=== PATIENT | female | born 1970 | race Caucasian/White ===

== ENCOUNTER → 2017-12-17 20:04 | Outpatient (REF) | payer OTHER, SELFPAY | LOC: LAB 20:04 | PROVIDERS: Visit Provider Nurse Practitioner Family ==

== ENCOUNTER → 2018-08-02 16:26 | Outpatient (CLI) | payer BC, SELFPAY ==
--- NOTE | 2018-08-02 16:30 | MM_ITS ---
MM Dig screening mamm BI w/CAD CAD Screening COMPARISON: Digital mammograms with CAD 06/10/2016 and 09/22/2012 INDICATION: There is no personal or family history of breast cancer TECHNIQUE: Standard CC and MLO images were obtained. R2 CAD reviewed. FINDINGS: The breasts are composed primarily of fat with scattered fibroglandular densities throughout each breast. There are few benign-appearing calcifications in each breast. There is a possible developing asymmetric density right breast upper outer quadrant. Recommend patient return for spot compression views in MLO and CC projection and ultrasound may be necessary as well. IMPRESSION: Fibrofatty parenchyma with possible developing asymmetric density right breast BI-RADS Category: 0 Need Additional Imaging Evaluation RECOMMENDED FOLLOW-UP: IMM - IMMEDIATE FOLLOW-UP RECOMMENDED (A letter has been sent to the patient regarding results of the study.)
== END ==
PROVIDERS: Family Provider Family Medicine; PCP Family Medicine; Visit Provider Obstetrics & Gynecology
DX: Z12.31 Encounter for screening mammogram for malignant neoplasm of breast (principal)
CPT/HCPCS: 77067

== ENCOUNTER → 2018-08-13 14:26 | Outpatient (CLI) | payer BC, SELFPAY ==
--- NOTE | 2018-08-13 14:28 | MM_ITS ---
MM Dig mamm DX unilat RT CAD, US breast RT complete INDICATION: Follow-up abnormal screening exam. Asymmetric density right breast ORDERING PHYSICIAN: Jayesh Beck MD PATIENT AGE: 48 years COMPARISON: 08/02/2018, 06/10/2016 TECHNIQUE: Spot compression views of the right breast and right breast ultrasound FINDINGS: There is a vague area of nodularity in the lateral aspect of the right breast at the 10:00 region corresponding to the abnormality noted on the screening study. This does not appear to compress out completely. The margins are slightly secured. Ultrasound was therefore performed. Right breast ultrasound: There is a complex cystic nodule at 10:00 which measures 7 x 4 mm corresponding to the mammographic abnormality. This is wider than it is tall contains internal septations with some enhanced through transmission of sound. No other significant anomalies are evident. IMPRESSION: Mammographic abnormality in the 10:00 region of the right breast corresponds to a complex cyst is probably benign. Suggest 6 month mammographic and sonographic follow-up for confirmation of short-term stability BI-RADS Category: 3 Probably Benign Finding Short Term Follow-up RECOMMENDED FOLLOW-UP: 6M - 6 MONTH FOLLOW-UP (A letter has been sent to the patient regarding results of the study.)
== END ==
PROVIDERS: PCP Obstetrics & Gynecology; Visit Provider Obstetrics & Gynecology
DX: R92.8 Other abnormal and inconclusive findings on diagnostic imaging of breast (principal)
CPT/HCPCS: 76641; 77065

== ENCOUNTER → 2019-07-04 13:11 | Outpatient (CLI) | payer BC, SELFPAY ==
--- NOTE | 2019-07-04 13:16 | US_ITS ---
PROCEDURE: US TRANSVAGINAL CLINICAL INDICATION: PELVIC PAIN COMPARISON: PTV US PELVIS-TRANSVAGINAL ONLY from 01/20/2017 FINDINGS: Uterus measures 8 x 4 x 4.5 cm with a combined endometrial thickness of 5 mm. Nabothian cysts are present measuring up to 1.2 cm. No uterine mass evident. The left ovary has an unremarkable appearance at 2.5 x 1.5 cm. There is a 3 cm right ovarian cyst and a 1.2 cm right ovarian cyst. No cul-de-sac fluid evident IMPRESSION: There are 2 right ovarian cyst measuring 3 and 1.2 cm. Follow-up suggested to confirm resolution otherwise negative Dictated by: Ivan Shen MD 07/04/2019 17:19 Electronically signed by Ivan Shen MD in [place] 07/04/2019 17:19
--- NOTE | 2019-07-04 14:36 | US_ITS ---
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 R2 CAD reviewed. FINDINGS: There is average fibroglandular tissue. Benign-appearing calcifications are present in the lower inner aspect of the right breast. These are not significantly changed and may reflect skin calcifications. Nodular density once again noted in the upper outer aspect of the right breast at the 10 o'clock region which are probably benign. Recommend bilateral 6 month follow-up with ultrasound of both sides.. No new nodules evident. Right breast ultrasound: There is a complex hypoechoic nodule at 10 o'clock at 6 x 3 mm. The size is overall not significantly changed with the echogenicity is slightly increased. The lateral margins are also slightly irregular. This may only represent a complex cyst. Continued follow-up suggested. Left breast: There is a 6 mm nodule in the upper outer aspect of the left breast lobulated in nature present on previous studies and appears slightly larger on the MLO but could be related to the technique.. This may be due to an intramammary lymph node or a cluster of small cysts. There is an asymmetric density in the central aspect of the left breast probably due to fibroglandular tissue. IMPRESSION: Bilateral breast nodules probably benign. Recommend bilateral 6 month mammographic and sonographic follow-up BI-RAD Category: 3 Probably Benign Finding Short Term Follow-up FOLLOW-UP: 6M 6Month Follow-up (A letter has been sent to the patient regarding results of the study.) Dictated by: Ivan Shen MD 07/08/2019 10:26 Electronically signed by Ivan Shen MD in [place] 07/08/2019 10:26
== END ==
PROVIDERS: PCP Family Medicine; Visit Provider Obstetrics & Gynecology
DX: R92.8 Other abnormal and inconclusive findings on diagnostic imaging of breast (principal); R10.2 Pelvic and perineal pain
CPT/HCPCS: 76641; 76830; 77066

== ENCOUNTER → 2019-08-01 10:43 | Outpatient (CLI) | payer BC, SELFPAY ==
--- NOTE | 2019-08-01 10:44 | US_ITS ---
PROCEDURE: US TRANSVAGINAL CLINICAL INDICATION: OVARIAN CYST Follow-up ovarian cyst COMPARISON: US TRANSVAGINAL from 07/04/2019 FINDINGS: UTERUS: The uterus is 9 x 4 x 5 cm with a combined endometrial thickness of 8 mm. Nabothian cysts are present. Ovaries: The left ovary is 3 x 1.7 cm and contains a 1.4 cm cyst. The right ovary is 3.7 x 2.2 cm and contains a 2.3 x 1.6 cm cyst. Previously this cyst measured 3 x 2 cm. There is an additional small cyst adjacent to the larger cyst at 12 mm not significantly changed. No cul-de-sac fluid evident. IMPRESSION: Overall slight decrease in size of the dominant left ovarian cyst with no change in the other smaller left ovarian cyst. Bulky uterus Dictated by: Ivan Shen MD 08/01/2019 15:33 Electronically signed by Ivan Shen MD in [place] 08/01/2019 15:33
== END ==
PROVIDERS: PCP Family Medicine; Visit Provider Obstetrics & Gynecology
DX: N83.202 Unspecified ovarian cyst, left side (principal)
CPT/HCPCS: 76830

== ENCOUNTER → 2020-01-12 08:44 | Outpatient (CLI) | payer OTHER, SELFPAY ==
--- NOTE | 2020-01-12 08:51 | US_ITS ---
PROCEDURE: US BREAST RT COMPLETE CLINICAL INDICATION: US Breast Bilateral- 6 mo f/u COMPARISON: US BREAST RT COMPLETE from 07/04/2019. Mammogram 01/12/2020 FINDINGS: At the 10 o'clock position near the nipple a hypoechoic nodule 4.9 x 3.5 x 2.7 millimeters is noted. This did measure 5.8 by 5.9 x 3.0 millimeters. Complicated cyst is favored. The slight decrease in size would favor benign etiology. There is no other discrete lesion. IMPRESSION: BI-RADS category 3 probably benign finding six-month follow-up exam is recommended. Dictated by: Jordan Bloom 01/12/2020 15:49 Electronically signed by Jordan Bloom in [place] 01/12/2020 15:49
--- NOTE | 2020-01-12 08:51 | US_ITS ---
PROCEDURE: US BREAST LT COMPLETE CLINICAL INDICATION: US Breast Bilateral- 6 mo f/u Assess new nodule seen in left breast mammographically COMPARISON: US BREAST RT COMPLETE from 01/12/2020. Mammogram 01/12/2020 FINDINGS: Multiple images targeted to the mammographic abnormality demonstrate at the 3 o'clock position near the nipple a 5.4 x 2.9 by 5.3 millimeter cystic nodule. There is a relatively thickened posterior wall suggesting complicated cyst. There is good through transmission. There is no mural nodule or other significant solid component. The finding is felt to be probably benign. There is no other discrete lesion. IMPRESSION: BI-RADS category 3 probably benign finding six-month follow-up exam is recommended. Dictated by: Jordan Bloom 01/12/2020 15:53 Electronically signed by Jordan Bloom in [place] 01/12/2020 15:53
--- NOTE | 2020-01-12 08:51 | MM_ITS ---
PROCEDURE: MM DIG MAMM BI DX W/CAD Digital Breast Tomosynthesis Included CLINICAL INDICATION: Dx Bilateral Mamm- 6 mo f/u COMPARISON: [facility] DIG MAMM-SCREEN RACHEL from 06/10/2016 [facility] MM Dig screening mamm BI w/CAD from 08/02/2018 DXRT MM Dig mamm DX unilat RT CAD from 08/13/2018 MM DIG MAMM BI DX W/CAD from 07/04/2019 TECHNIQUE: Standard CC and MLO images and 3D Tomosynthesis was obtained. R2 CAD reviewed. FINDINGS: The breasts are of average density. A well-circumscribed nodule approximately 4.4 millimeters is seen in the left breast at approximately the 3 o'clock position. Ultrasound targeted to this abnormality performed 01/12/2020 demonstrated a probably benign complicated cystic lesion. There are scattered benign appearing calcifications bilaterally. There are no spiculated masses or suspicious clustered microcalcifications to suggest malignancy. Previously described nodular density in the lateral right breast is not clearly present. Asymmetrical density deep in the left breast behind the nipple on the MLO view is not significantly changed. A 3 millimeter well-circumscribed nodular density is seen at the nipple line in the retroareolar left breast on the MLO view may lie medially on the CC view. It is probably benign. Six-month follow-up exam is recommended. IMPRESSION: BI-RAD Category: 3 Probably Benign Finding Short Term Follow-up FOLLOW-UP: 6M 6Month Follow-up (A letter has been sent to the patient regarding results of the study.) Dictated by: Jordan Bloom 01/12/2020 16:09 Electronically signed by Jordan Bloom in [place] 01/12/2020 16:09
== END ==
PROVIDERS: PCP Family Medicine; Visit Provider Obstetrics & Gynecology
DX: R92.8 Other abnormal and inconclusive findings on diagnostic imaging of breast (principal)
CPT/HCPCS: 76641; 77062; 77066; G0279

== ENCOUNTER → 2020-06-20 10:54 | Outpatient (CLI) | payer OTHER, SELFPAY ==
--- NOTE | 2020-06-20 10:59 | CA_ITS ---
APPROVED REPORT Right Lower Extremity Venous Study for DVT. Commercial Administrator: CT Indications Lower Extremity Pain: Right Lower Extremity Edema: Right Current Smoker right foot pain,edema Risk Factors Prior Phlebitis/DVT Current Smoker Medications Aspirin 325 mg daily Vein Imaging CFV (R): compressive, spontaneous, phasic, augmentation SFJ (R): compressive, spontaneous, phasic, augmentation FEM (R): compressive, spontaneous, phasic, augmentation POP (R): compressive, spontaneous, phasic, augmentation DFV (R): compressive, spontaneous, phasic, augmentation PTV (R): compressive, spontaneous, phasic, augmentation GSV (R): compressive, spontaneous, phasic, augmentation SSV (R): Not Visualized Peroneals (R):compressive, spontaneous, phasic, augmentation GAS (R): compressive, spontaneous, phasic, augmentation Findings RLE negative for DVT/SVT Vessels compressible. No reflux noted Conclusion RLE negative for DVT/SVT Vessels compressible. No reflux noted Electronically signed by : Ivan Shen MD 06/20/2020 18:29:16
== END ==
PROVIDERS: PCP Nurse Practitioner; Visit Provider Nurse Practitioner
DX: M79.661 Pain in right lower leg (principal); M79.89 Other specified soft tissue disorders
CPT/HCPCS: 93971

== ENCOUNTER → 2020-07-02 13:50 | Outpatient (CLI) | payer OTHER, SELFPAY ==
--- NOTE | 2020-07-02 13:55 | XR_ITS ---
PROCEDURE: XR ANKLE RT MIN 3V CLINICAL INDICATION: RT ANKLE PAIN COMPARISON: No exams were available for comparison FINDINGS: There is a faint calcific density at the tip of the medial malleolus. This is well-circumscribed and may represent old injury or ununited ossification center. There is prominent calcaneal spur. IMPRESSION: No acute finding. Old avulsion injury versus ununited ossification center at the medial malleolus. Dictated by: Ivan Shen MD 07/02/2020 15:37 Ivan Shen MD in [place] 07/02/2020 15:37
--- NOTE | 2020-07-02 13:55 | XR_ITS ---
PROCEDURE: XR FOOT RT MIN 3V CLINICAL INDICATION: RT foot PAIN COMPARISON: No exams were available for comparison FINDINGS: No fracture or dislocation. No lytic or blastic change. There is normal mineralization. The joint spaces are well-preserved. No significant degenerative/arthritic changes. No erosive changes evident. Other findings:There is a prominent calcaneal spur at 10 mm. There is some cortical regularity involving the proximal and lateral aspect of the proximal phalanx of the 2nd toe. This is nonspecific and may represent a chronic process. IMPRESSION: No acute finding. Please see above for detail Dictated by: Ivan Shen MD 07/02/2020 15:36 Ivan Shen MD in [place] 07/02/2020 15:36
== END ==
PROVIDERS: PCP Family Medicine; Visit Provider Family Medicine
DX: M25.571 Pain in right ankle and joints of right foot (principal)
CPT/HCPCS: 73610; 73630

== ENCOUNTER → 2020-08-16 10:01 | Outpatient (CLI) | payer OTHER, SELFPAY ==
--- NOTE | 2020-08-16 10:02 | MR_ITS ---
PROCEDURE: MR ANKLE RT WO/W CON CLINICAL INDICATION: ankle pain entire ankle pain. hx broken ankle xyrs ago. swelling on medial aspect of ankle. pain [id number]. no injury. pain when bending and extending. Posterior tibialis tendinitis versus partial tear, increased pain and swelling with medial arch collapse COMPARISON: CR XR FOOT RT MIN 3V from 07/02/2020 CR XR ANKLE RT MIN 3V from 07/02/2020 TECHNIQUE: Routine multiplanar multi echo sequences are performed without and with gadolinium enhancement. FINDINGS: There is some fluid signal intensity within the posterior tibialis and flexor digitorum longus tendon sheath along the distal tibia. Fluid signal intensity also present within the flexor hallucis longus at the level of the ankle joint. There does appear to be a tear of the distal aspect of the posterior tibialis tendon at its insertion upon the navicular with some surrounding edema. There is some edema of the navicular medially. The tibial fibular ligaments appear intact. The ATFL is thinned with a small amount fluid at the ankle joint noted anteriorly and posteriorly.. The PT FL and deltoid ligament appears intact IMPRESSION: 1. Findings compatible with tear of the posterior tibialis tendon at its insertion upon the navicular with surrounding edema of the soft tissues and of the navicular. 2. Fluid within the posterior tibialis and flexor digitorum longus and flexor hallucis longus tendon sheaths consistent with tenosynovitis. 3. Thinning of the ATFL which could be due to sprain or partial tear. Dictated by: Ivan Shen MD 08/20/2020 09:26 Ivan Shen MD in [place] 08/20/2020 09:26
== END ==
PROVIDERS: PCP Family Medicine; Visit Provider Podiatrist
DX: M76.821 Posterior tibial tendinitis, right leg (principal); S86.111A Strain of other muscle(s) and tendon(s) of posterior muscle group at lower leg level, right leg, initial encounter
CPT/HCPCS: 73723; A9576

== ENCOUNTER 2020-10-30 10:00 | Outpatient (RCR) | payer OTHER, SELFPAY ==
--- NOTE | 2020-09-12 11:37 | HMH.PTOPEV ---
PT Outpatient Evaluation Rehab PT Outpatient Evaluation Start: 09/12/20 11:29 Freq: Status: Active Protocol: Document 09/12/20 11:29 BRICE (Rec: 09/12/20 11:37 BRICE [id number]) Electronically Signed By Kit Deal, PT 09/12/20 11:29 Outpatient Therapy Subjective History Subjective History Pt reports insidious onset medial R foot/ankle pain beginning ~3 months ago. Pt reports recent MRI has revealed 'tendon tear', and pain/swelling has improved over the last ~2 weeks. Pt reports localized medial foot/ ankle pain with prolonged standing/walking. PMH:CVA Chief Complaint Pain,Stiff,Swelling,Weakness Symptom Type Ache,Sharp,Dull Symptoms Relieved By Rest/Positioning,Prescription Meds Symptoms Aggravated By Standing,Physical Activity, Walking Prior Functional Limitations Standing,Walking,Stairs Current Functional Limitations Standing Symptom Description Constant but Variable Level of pain today (0-10) 2 Pain scale - at its best (0-10) 2 Pain scale - at its worst (0-10) 5 Ankle/Foot Eval Gait Observation General Gait Pattern Observation Antalgic Gait Palpation Tenderness right Ankle/Foot Palpation Findings Tenderness Ankle/Foot Palpation Overall Comment posterior tib tendon 3/4 ROM Ankle/Foot Dorsiflexion w/Knee Extended 0-5 Active Range Motion (degrees) Ankle/Foot Plantar Flexion Active Range 0-45 of Motion (degrees) Ankle/Foot Eversion Active Range of 0-10 Motion (degrees) Ankle/Foot Inversion Active Range of 0-20 Motion (degrees) Ankle/Foot ROM Limitations Pain MMT Ankle Dorsiflexion Strength Grade 4 Good Ankle Plantarflexion Strength Grade 4 Good Foot Eversion Strength Grade 4- Good- Foot Inversion Strength Grade 3+ Fair+ Outpatient Therapy Assessment Impairments Problems/Impairmments Palpation Tenderness,Impaired Range of Motion,Impaired Strength,Impaired Gait Pattern ,Impaired Walking,Impaired Standing,Impaired Household Care,Impaired Work Activities, Subjective C/O Pain,Impaired Self Care/Self Management Prognosis Rehab Potential Good Clinical Impression Consistent with Diagnosis Yes Short Term Goals Number of Weeks 4 Decreased Palpation Tenderness
--- NOTE | 2020-10-16 11:29 | HMH.RHREAS ---
Rehab Reassessment Rehab OP Re-assessment Start: 10/16/20 10:57 Freq: Status: Active Protocol: Document 10/16/20 11:23 BRICE (Rec: 10/16/20 11:29 BRICE [id number]) Electronically Signed By Kit Deal, PT 10/16/20 11:23 Rehab Re-assessment Subjective Subjective Pt reports no significant changes in R foot/ankle pain since I Eval. Pt reports 'it feels good at therapy, but after I have to work a full day on my feet it's bad again' . Pt reports 3-5/10 R ankle pain on VAS. Objective Objective Notes AROM: R ANKLE DF 0-5, PF 0-40, INV 0-20, EVR 0-15 MMT: R ANKLE DF 4/5, PF 4/5, INV 4-/5, EVR 4/5 TTP: POST. TIB INSERTION 2-3/4 R Assessment Progress Assessment Slower Than Expected Assessment Notes PT W/SLIGHT IMPROVEMENT IN R ANKLE ROM AND STRENGTH Patient goals met STG'S 01/18 Goals Not Met STG'S 02/17, LTG'S 08/22 Plan Plan PT TO CONT. W/SKILLED P.T. UNTIL REFERRING PHYSICIAN FOLLOW-UP APPT TO MAKE FURTHER IMPROVEMENTS IN R ANKLE ROM, STRENGTH, AND TTP TO ALLOW FOR OPTIMAL FUNCTION Frequency of Therapy 1-2X/WK Duration of therapy 3-4 WKS Time and Billing Re-Eval Time 15 Re-Eval Billing Units 1 PHYSICIAN CERTIFICATION: I certify the specified therapy services for Renetta Ulloa are required, authorized, and reviewed every 30 days.
== END 2020-10-30 10:05 | disposition home or self-care (01) ==
LOC: PT 10:00
PROVIDERS: PCP Family Medicine; Visit Provider Podiatrist
DX: M76.811 Anterior tibial syndrome, right leg; S86.111A Strain of other muscle(s) and tendon(s) of posterior muscle group at lower leg level, right leg, initial encounter
CPT/HCPCS: 97010; 97014; 97033; 97035; 97110; 97112; 97163; 97164; 97535; G0283

== ENCOUNTER 2021-04-14 19:31 | Emergency (ER) | payer OTHER, SELFPAY ==
[2021-04-14 19:38] VITALS: BP 122/79; PULSE 100; RESP 12; TEMP 36.7; O2SAT 99; BMI 33.2
--- NOTE | 2021-04-14 19:51 | HMH.EDUTC ---
[facility] [place] Disposition Clinical Impression: UTI (urinary tract infection) Qualifiers: Urinary tract infection type: site unspecified Hematuria presence: with hematuria Qualified Code(s): N39.0 - Urinary tract infection, site not specified Disposition: Home, Self-Care Condition on Discharge: Good Instructions: DI for Urinary Tract Infection (UTI) Additional Instructions: Drink plenty of fluids. Take tylenol or ibuprofen for pain or fever. Take the medications as directed. Follow up with your regular doctor. GO TO THE ER FOR ANY WORSENING SYMPTOMS Prescriptions: Nitrofurantoin Monohyd/M-Cryst [Macrobid 100 mg Capsule] 100 mg PO BID 5 Days #10 cap Transmission Status: Received by [facility] Referrals: Aj Melendez MD [Primary Care Provider] - Forms: Work/School Release Time of Disposition: 20:26 Medical Decision Making - Medical Records Medical records reviewed: No: I reviewed the patient's medical records. - Micah Inquiry Pt receiving controlled substance: No Vital Signs: 04/14/21 19:38 04/14/21 20:29 Temperature 98.1 F 98.1 F Temperature Source Oral Pulse Rate 97 H Pulse Rate [Right] 100 H Respiratory Rate 12 18 Blood Pressure 119/85 Blood Pressure [Right Arm] 122/79 Blood Pressure Mean [Right Arm] 93 02 Sat by Pulse Oximetry 99 - Lab Data Lab results reviewed: Yes: I reviewed the patient's lab results. Lab Results 04/14/21 19:51: Urine Color Yellow, Urine Appearance Cloudy, Urine pH 7.0, Ur Specific [place] 1.025, Urine Protein 3+, Urine Glucose (UA) Negative, Urine Ketones Trace, Urine Blood 3+, Urine Nitrate Positive A, Urine Bilirubin 1+ A, Urine Urobilinogen 1, Ur Leukocyte Esterase 1+ A Orders (Tests/Meds): ED MEDICATIONS Discontinued Medications Generic Name Dose Route Start Last Admin Trade Name Freq PRN Reason Stop Dose Admin Nitrofurantoin Macrocrystals 100 mg 04/14/21 20:29 04/14/21 20:33 Nitrofurantoin 100mg Capsule PO 04/14/21 20:30 100 mg ONCE ONE Administration [facility] [place] HPI - General Stated complaint: possible uti Time Seen by Provider: 04/14/21 20:00 Mode of Arrival: Ambulatory Source of Information: Patient Limitations: No Limitations Description of Symptoms (Recalled from Triage Doc. by RN): pt thinks she has a uti. she c/o burning with urination. HEENT Symptoms (Recalled from RN notes): No Resp Symptoms (Recalled from RN notes): No Skin Symptoms (Recalled from RN notes): No MS Symptoms (Recalled from RN notes): No Functional Status (Recalled from RN notes): na - History of Present Illness Provider Complaint: She states that she has been having burning with urination and strong smelling urine since yesterday. She denies any back pain. - Related Data Home Medications Medication Instructions Recorded Confirmed aspirin 325 mg tablet 325 mg PO BID 12/17/17 12/03/20 lisinopril 20 mg tablet 20 mg PO tab 12/03/20 12/03/20 tramadol 50 mg tablet 50 mg PO DAILY 12/11/20 varenicline 1 mg tablet 1 mg PO BID 12/11/20 Previous Rx's Medication Instructions Recorded diclofenac sodium 1 % topical gel 4 g TOPICAL QID PRN #100 g 08/24/20 Nitrofurantoin Monohyd/M-Cryst 100 mg PO BID 5 Days #10 cap 04/14/21 [Macrobid 100 mg Capsule] Allergies Allergy/AdvReac Type Severity Reaction Status Date / Time amoxicillin [From AMOXIL] Allergy Intermediate I-HIVES Verified 12/11/20 10:40 phenazopyridine Allergy Intermediate ITCHING Verified 12/11/20 10:40 [From PYRIDIUM] Ixcrgqp-Aar-Dgy Reductase Allergy Mild Verified 12/11/20 10:40 Inhibitor sulfamethoxazole Allergy Mild Verified 12/11/20 10:40 [From Bactrim] trimethoprim [From Bactrim] Allergy Mild Verified 12/11/20 10:40 atorvastatin Allergy Verified 12/11/20 10:40 - Worker's Comp Is this a Worker's Comp case?: No H History - Hepatitis A Screen Drug use history?: No High risk sexual behaviors?: No History of sexually transmi
[2021-04-14 19:54] LABS: Apearance,Urine Cloudy (Clear); Color,Urine Yellow (Yellow)
[2021-04-14 19:55] LABS: Protein,Urine 3+ (Negative); Specific Gravity, Urine 1.025 (1.005-1.030)
[2021-04-14 19:56] LABS: Glucose,Urine (UA) Negative (Negative); Ketones,Urine TRACE (Negative)
[2021-04-14 19:57] LABS: Bilirubin,Urine 1+ (Negative); Blood, Urine 3+ (Negative)
[2021-04-14 19:58] LABS: UTC Leukocyte Esterase,Urine 1+ (Negative); Urobilinogen,Urine 1 EU/dl (0.2)
[2021-04-14 19:59] LABS: UTC Nitrate,Urine Positive (Negative)
[2021-04-14 20:29] VITALS: BP 119/85; PULSE 97; RESP 18; TEMP 36.7
== END 2021-04-14 20:35 | disposition home or self-care (01) ==
PROVIDERS: Emergency Provider Nurse Practitioner Family; PCP Family Medicine
DX: N30.00 Acute cystitis without hematuria (principal); I10 Essential (primary) hypertension; Z86.73 Personal history of transient ischemic attack (TIA), and cerebral infarction without residual deficits
CPT/HCPCS: 81003; 99202; G0463

== ENCOUNTER → 2021-07-04 10:53 | Outpatient (CLI) | payer OTHER, SELFPAY ==
--- NOTE | 2021-07-04 10:53 | MM_ITS ---
PROCEDURE: MM DIG SCREENING MAMM BI W/CAD Digital Breast Tomosynthesis Included CLINICAL INDICATION: Routine Screening Mammogram There is no personal or family history of breast cancer. COMPARISON: MG DXRT MM Dig mamm DX unilat RT CAD from 08/13/2018 MG MM DIG MAMM BI DX W/CAD from 07/04/2019 MG MM DIG MAMM BI DX W/CAD from 01/12/2020 TECHNIQUE: Standard CC and MLO images and 3D Tomosynthesis was obtained. R2 CAD reviewed. FINDINGS: Breasts are composed primarily of fat with scattered fibroglandular densities seen throughout each breast. There is a stable small benign-appearing nodular density outer quadrant left breast. There is no suspicious lesion and there are no suspicious microcalcifications. IMPRESSION: Fibrofatty parenchyma with no suspicious lesions seen BI-RAD Category: 2 Benign Finding(s) FOLLOW-UP: 1YR 1 Year Follow-up (A letter has been sent to the patient regarding results of the study.) Dictated by: Dr. Tho Gomez MD 07/18/2021 12:56 Dr. Tho Gomez MD in [place] 07/18/2021 12:56
== END ==
PROVIDERS: PCP Family Medicine; Visit Provider Obstetrics & Gynecology
DX: Z12.31 Encounter for screening mammogram for malignant neoplasm of breast (principal)
CPT/HCPCS: 77063; 77067

== ENCOUNTER → 2021-09-09 11:45 | Outpatient (CLI) | payer OTHER, SELFPAY ==
--- NOTE | 2021-09-11 11:15 | PC.NURSE ---
notified pt of positive COVID test results at this time
== END ==
PROVIDERS: PCP Family Medicine; Visit Provider Nurse Practitioner
DX: U07.1 COVID-19 (principal)
CPT/HCPCS: C9803; U0003; U0005

== ENCOUNTER 2021-09-12 08:22 | Outpatient (CLI) | payer OTHER, SELFPAY ==
[2021-09-12] VITALS (7 sets, daily range): BP systolic 112–145; BP diastolic 68–84; PULSE 74–81; RESP 16; TEMP 36.6–36.9; O2SAT 98–100
== END 2021-09-12 10:37 | disposition home or self-care (01) ==
PROVIDERS: PCP Family Medicine; Visit Provider Family Medicine
DX: U07.1 COVID-19 (principal); Z23 Encounter for immunization
CPT/HCPCS: 96365

== ENCOUNTER → 2021-09-19 09:46 | Outpatient (CLI) | payer OTHER, SELFPAY ==
--- NOTE | 2021-09-19 10:11 | XR_ITS ---
PROCEDURE: XR CHEST PORTABLE CLINICAL HISTORY: COVID TESTING COMPARISON: No exams were available for comparison FINDINGS: The cardiomediastinal silhouette and pulmonary vascularity are within normal limits. The lungs are clear without infiltrates, suspicious nodules, or pleural effusions. No acute bony abnormalities. IMPRESSION: No acute findings. Dictated by: Ivan Shen MD 09/19/2021 11:46 Ivan Shen MD in [place] 09/19/2021 11:46
[2021-09-19 10:57] LABS: Chloride 104 mmol/L (98-107)
[2021-09-19 11:00] LABS: Alanine Aminotransferase 25 U/L (12-78); Albumin Level 4.3 g/dl (3.5-5.0); Albumin/Globulin Ratio 1.3 (1.1-1.8); Alkaline Phosphatase 104 U/L (38-126); Anion Gap 10.5 mEq/L (5-15); Aspartate Amino Transferase 35 U/L (14-36); Bilirubin,Total 0.3 mg/dl (0.2-1.3); Blood Urea Nitrogen 23 mg/dl (7-17); Calcium 9.8 mg/dl (8.4-10.2); Carbon Dioxide 29 mmol/L (22.0-30.0); Estimated Glomerular Filt Rate 59 ml/min (>60); GFR (African American) 71 ML/MIN (>60); Globulin 3.2 g/dL (1.3-3.2); Glucose 95 mg/dl (74-100); Potassium 4.5 mmoL/L (3.5-5.1); Sodium 139 mmol/L (136-145); Total Protein,Serum 7.5 g/dl (6.3-8.2)
[2021-09-19 11:03] LABS: Basophils # 0.1 K/mm3 (0-0.2); Basophils % 1.5 % (0.1-2.0); Eosinophils # 0.1 K/mm3 (0.0-0.4); Eosinophils % 2.1 % (0.1-12.0); Hematocrit 41.8 % (37.0-47.0); Hemoglobin 13.6 g/dL (12.2-16.2); Lymphocytes # 2.3 K/mm3 (0.7-4.5); Lymphocytes % 37.2 % (10-50); Mean Corpuscular HGB Conc 32.5 g/dL (31.8-35.4); Mean Corpuscular Hemoglobin 28.8 pg (27.0-31.2); Mean Corpuscular Volume 88.8 fl (81-99); Monocytes # 0.3 K/mm3 (0.1-1.0); Monocytes % 5.6 % (1.7-9.3); Neutrophils # 3.3 K/mm3 (1.8-7.8); Neutrophils % 53.7 % (37.0-80.0); Platelet Count 282 K/mm3 (142-424); Red Blood Count 4.71 M/mm3 (4.20-5.40); White Blood Count 6.2 K/mm3 (4.8-10.8)
[2021-09-19 11:05] LABS: D-Dimer 0.85 ug/mL (0.0-0.5)
== END ==
PROVIDERS: PCP Family Medicine; Visit Provider Nurse Practitioner Family
DX: U07.1 COVID-19 (principal); R06.02 Shortness of breath
CPT/HCPCS: 36415; 71045; 80053; 85025; 85378

== ENCOUNTER → 2022-01-29 13:59 | Outpatient (CLI) | payer OTHER, SELFPAY ==
--- NOTE | 2022-01-29 14:04 | XR_ITS ---
FINAL REPORT CLINICAL HISTORY: Thumb cyst FINDINGS: LEFT HAND: 3 views of the left hand were obtained. There is no acute fracture or dislocation. There are mild degenerative changes of the 1st carpometacarpal joint. Soft tissues are unremarkable. IMPRESSION: Degenerative changes with no acute bony abnormality. Reviewed, Interpreted and Dictated by Jamil Ross III, MD Transcribed by Sandi Levine Authenticated by Jamil Ross III, MD on 01/29/2022 03:26:30 PM [facility]
== END ==
PROVIDERS: PCP Family Medicine; Visit Provider Orthopaedic Surgery
DX: M79.645 Pain in left finger(s) (principal); M67.40 Ganglion, unspecified site; M15.8 Other polyosteoarthritis
CPT/HCPCS: 73130

== ENCOUNTER 2022-04-08 15:28 | Emergency (ER) | payer OTHER, SELFPAY ==
[2022-04-08 15:45] VITALS: BP 122/75; PULSE 105; RESP 19; TEMP 37.3; O2SAT 100; BMI 35.7
[2022-04-08 15:55] LABS: Apearance,Urine Cloudy (Clear); Color,Urine Yellow (Yellow); Glucose,Urine (UA) Negative (Negative); Ketones,Urine Negative (Negative); PH,Urine 6.5 (5.0-8.5); Protein,Urine 2+ (Negative)
[2022-04-08 15:56] LABS: Bilirubin,Urine Negative (Negative); Blood, Urine 3+ (Negative); UTC Leukocyte Esterase,Urine 3+ (Negative); UTC Nitrate,Urine Positive (Negative); Urobilinogen,Urine 0.2 EU/dl (0.2)
--- NOTE | 2022-04-08 16:05 | HMH.EDUTC ---
[facility] [place] Clinical Impression: UTI (urinary tract infection) Qualifiers: Urinary tract infection type: site unspecified Hematuria presence: with hematuria Qualified Code(s): N39.0 - Urinary tract infection, site not specified Disposition: Home, Self-Care Condition on Discharge: Good Instructions: Urinary Tract Infection, DI for Urinary Tract Infection (UTI) Additional Instructions: Drink plenty of fluids. Take tylenol or ibuprofen for pain or fever. Take the medications as directed. Follow up with your regular doctor. GO TO THE ER FOR ANY WORSENING SYMPTOMS We will culture the urine. That will tell what bacteria is causing your infection and which antibiotics will treat it best. Sometimes the first antibiotic we prescribe turns out to not work against different bacteria. So, make sure you follow up within 3 days if you are not getting better. Prescriptions: Ondansetron [Zofran 4mg ODT] 4 mg PO Q8HP PRN #20 tab PRN Reason: Nausea Transmission Status: Received by [facility] Nitrofurantoin Monohyd/M-Cryst [Macrobid 100 mg Capsule] 100 mg PO BID 5 Days #10 cap Transmission Status: Received by [facility] Referrals: Bran Kerr MD [Primary Care Provider] - Forms: Work/School Release Time of Disposition: 16:08 Medical Decision Making - Medical Records Medical records reviewed: No: I reviewed the patient's medical records. - Micah Inquiry Pt receiving controlled substance: No Vital Signs: 04/08/22 15:45 04/08/22 16:12 Temperature 99.2 F 99.2 F Temperature Source Oral Pulse Rate 105 H Pulse Rate [Left] 105 H Respiratory Rate 19 19 Blood Pressure 122/75 Blood Pressure [Right Arm] 122/75 Blood Pressure Mean [Right Arm] 90 02 Sat by Pulse Oximetry 100 - Lab Data Lab results reviewed: Yes: I reviewed the patient's lab results. Lab Results 04/08/22 15:53: Urine Color Yellow, Urine Appearance Cloudy, Urine pH 6.5, Ur Specific Deport 1.020, Urine Protein 2+, Urine Glucose (UA) Negative, Urine Ketones Negative, Urine Blood 3+, Urine Nitrate Positive A, Urine Bilirubin Negative, Urine Urobilinogen 0.2, Ur Leukocyte Esterase 3+ A Orders (Tests/Meds): ORDERS Category Date Time Status Urine Culture Stat Micro 04/08/22 15:53 [place] [facility] [place] - General Stated complaint: possible UTI or Bladder infection Time Seen by Provider: 04/08/22 16:06 Description of Symptoms (Recalled from Triage Doc. by RN): patient comes in today with complaints of uti. symptoms began 2 days ago. patient states that she is allergic to pyridium HEENT Symptoms (Recalled from RN notes): No Resp Symptoms (Recalled from RN notes): No Skin Symptoms (Recalled from RN notes): No MS Symptoms (Recalled from RN notes): No Functional Status (Recalled from RN notes): wnl - History of Present Illness Provider Complaint: She states that for the past 2 days she has had low back pain, dysuria, urinary frequency and cloudy urine. - Related Data Home Medications Medication Instructions Recorded Confirmed aspirin 325 mg tablet 325 mg PO BID 12/17/17 03/11/22 lisinopril 20 mg tablet 20 mg PO tab 12/03/20 03/11/22 Previous Rx's Medication Instructions Recorded diclofenac sodium 1 % topical gel 4 g TOPICAL QID PRN #100 g 08/24/20 Nitrofurantoin Monohyd/M-Cryst 100 mg PO BID 5 Days #10 cap 04/08/22 [Macrobid 100 mg Capsule] Ondansetron [Zofran 4mg ODT] 4 mg PO Q8HP PRN #20 tab 04/08/22 Allergies Allergy/AdvReac Type Severity Reaction Status Date / Time amoxicillin [From AMOXIL] Allergy Intermediate I-HIVES Verified 04/08/22 15:48 phenazopyridine Allergy Intermediate ITCHING Verified 04/08/22 15:48 [From PYRIDIUM] Fdliqdr-BXY-UbH Reductase Allergy Mild Verified 04/08/22 15:48 Inhibitor [Epdcojo-Dvr-Tcn Reductase Inhibitor] sulfamethoxazole Allergy Mild Verified 04/08/22 15:48 [From Bactrim] trimethoprim [From Bactrim] Allergy
[2022-04-08 16:12] VITALS: BP 122/75; PULSE 105; RESP 19; TEMP 37.3
== END 2022-04-08 16:17 | disposition home or self-care (01) ==
PROVIDERS: Emergency Provider Nurse Practitioner Family; PCP Family Medicine
DX: N39.0 Urinary tract infection, site not specified (principal); B96.20 Unspecified Escherichia coli [E. coli] as the cause of diseases classified elsewhere; R31.9 Hematuria, unspecified
CPT/HCPCS: 81003; 87086; 87088; 87186; 99212; G0463